=== PATIENT | male | born 1995 | race Caucasian/White ===

== ENCOUNTER 2021-08-12 11:07 | Emergency (ER) | payer OTHER ==
[~2021-08-12] VITALS: Ht 175.3 cm; Wt 90.7 kg
--- NOTE | 2021-08-12 11:40 | NUR ---
SANDIP MADDOX Escorted by Officer Nasim [id number] "Courtney request a CT scan SANDIP MADDOX Escorted by Officer Nasim [id number] "Courtney request a CT scan. The patient is alert and oriented x3. Will continue to monitor the patient.
--- NOTE | 2021-08-12 13:00 | NUR ---
Awake in no obvious distess. Remains in [employer] custody- At direct line of sight
[2021-08-12] MEDS ORDERED: NALO1DIS2 IM (13:26)
[2021-08-12 13:32] VITALS: BP 140/79
--- NOTE | 2021-08-12 13:34 | NUR ---
Patient discharged to [employer] custody in stable condition. Written and verbal after care instructions given.
== END 2021-08-12 13:33 ==
LOC: ER 11:18
DX: S09.90XA Unspecified injury of head, initial encounter (principal); F11.10 Opioid abuse, uncomplicated; V49.49XA Driver injured in collision with other motor vehicles in traffic accident, initial encounter; Y93.89 Activity, other specified; Y92.89 Other specified places as the place of occurrence of the external cause; Y99.8 Other external cause status
CPT/HCPCS: 36415; 70450-TC; G0480